=== PATIENT | female | born 1995 | race Two or more races ===

== ENCOUNTER 2024-03-03 16:08 | Inpatient (IN) ==
[2024-03-03 16:34] VITALS: BMI 41.8
[2024-03-03] MEDS ORDERED: REGLAN INJ 10 MG VIAL IVP PRN (16:45)
[2024-03-03] MEDS ORDERED: ZOFRAN INJ 4 MG VIAL IVP PRN (16:45)
[2024-03-03] MEDS ORDERED: PITOCIN IVP ONE (16:45)
[2024-03-03] MEDS: D5 1/2 NS 1,000 ML 1,000 ML IV ONE (17:00)
[2024-03-03 17:28] LABS: BASOPHILS # (AUTO) 0.1 X10^3/uL (0.0-0.1); BASOPHILS % (AUTO) 0.5 % (0.2-1.0); EOSINOPHILS # (AUTO) 0.1 x10^3/uL (0.0-0.2); EOSINOPHILS % (AUTO) 0.6 % (0.9-2.9); HEMATOCRIT 37.3 % (36.0-47.0); HEMOGLOBIN 13.1 g/dL (12.0-16.0); LYMPHOCYTES # (AUTO) 3.4 X10^3/uL (1.3-2.9); LYMPHOCYTES % (AUTO) 24.6 % (21.0-51.0); MEAN CORPUSCULAR HEMOGLOBIN 31.2 pg (27.0-34.0); MEAN CORPUSCULAR HGB CONC 35.1 g/dL (33.0-35.0); MEAN PLATELET VOLUME 11.5 fL (7.4-11.0); MONOCYTES # (AUTO) 0.7 x10^3/uL (0.3-0.8); NEUTROPHILS # (AUTO) 9.7 x10^3/uL (2.2-4.8); NEUTROPHILS % (AUTO) 69.3 % (42.0-75.0); PLATELET COUNT 201 X10^3/uL (150.0-450.0); RED BLOOD COUNT 4.19 X10^6/uL (3.5-5.4); RED CELL DISTRIBUTION WIDTH 13.7 % (11.6-16.5)
[2024-03-03 17:31] LABS: BLOOD UREA NITROGEN 7 mg/dL (7-18); CALCIUM 8.7 mg/dL (8.5-10.1); CARBON DIOXIDE 24.4 mmol/L (21-32); CHLORIDE 103 mmol/L (98-107); CREATININE 0.69 mg/dL (0.55-1.02); GLUCOSE 73 mg/dL (65-99); SODIUM 136 mmol/L (136-145); eGFR NON BLACK RACES > 60 (>60)
[2024-03-03] MEDS: OXYTOCIN 20 UNIT/1,000 ML-NS 20 UNIT/1,000 ML PLAST..BAG IV PRN (17:35)
[2024-03-03] MEDS: NUBAIN INJ 20 MG AMP IVP PRN (17:40)
--- NOTE | 2024-03-03 17:40 | DR.OB ---
OB QUICK NOTE Assessment/Plan (1) Active labor at term: Assessment/Plan: L&D 03/03/24 at 5:30pm S-No complaint except CTX. O-Afebrile,VSS OYX=387 with good LTV, +accel, no decel. CTX=q 1 1/2 min., mod. by palpation CVX=4-5cm/50%/-1/VTX AROM with light meconium. IUPC and FSE placed. A-IUP at 38 5/7 weeks in active labor P-Begin pitocin augmentation as needed. F/U labs Anticipate
[2024-03-03 17:56] LABS: BILIRUBIN,URINE NEGATIVE (NEGATIVE); BLOOD/HEMOGLOBIN,URINE 1+ (NEGATIVE); GLUCOSE, URINE NEGATIVE (NEGATIVE); KETONES,URINE NEGATIVE (NEGATIVE); LEUKOCYTE ESTERASE ,URINE NEGATIVE (NEGATIVE); NITRITES,URINE NEGATIVE (NEGATIVE); PROTEIN,URINE NEGATIVE (NEGATIVE); UROBILINOGEN,URINE NORMAL (NORMAL)
[2024-03-03 17:57] LABS: APPEARANCE,URINE CLEAR (CLEAR); COLOR,URINE PALE YELLOW (YELLOW)
[2024-03-03] MEDS: BETADINE SOLN ONE (18:00)
[2024-03-03 18:03] LABS: BACTERIA,URINE TRACE /HPF (NEGATIVE); RBC,URINE 0-2 /HPF (0-3); SQUAMOUS EPITHELIAL CELL,UR MODERATE /HPF (NEGATIVE)
[2024-03-03] MEDS: D5 1/2 NS 1,000 ML 1,000 ML IV SCH (18:12)
[2024-03-03] MEDS: NUBAIN INJ 10 MG AMP ONE (18:13)
[2024-03-03] MEDS: PITOCIN ONE (18:14)
--- NOTE | 2024-03-03 19:03 | DR.OB ---
OB QUICK NOTE Assessment/Plan (1) Active labor at term: Assessment/Plan: Delivery Note BULK STATION AGENT 03/03/24 at 6:47pm Patient complete and pushing. Head delivered over intact perineum. No nuchal cord. Nose and mouth bulb suctioned. Body delivered over intact perineum. Cord clamped x 2 and cut. Infant handed to attendant. Cord sent for gases. Placenta delivered spontaneously / intact / 3 vessel cord. No CVX / vaginal / perineal tears. Viable male infant delivered by , VTX/OA, wt=7'8" and 9/10, stable to NBN. [id number].
[2024-03-03] MEDS ORDERED: MOTRIN TAB 800 MG PO PRN (19:33)
[2024-03-03] MEDS ORDERED: AMBIEN PO PRN (19:33)
[2024-03-03] MEDS: OXYTOCIN 20 UNIT/1,000 ML-NS 20 UNIT/1,000 ML PLAST..BAG IV SCH (20:14)
[2024-03-04] MEDS: ADACEL or BOOSTRIX TDaP VACCINE IM ONE (01:05)
[2024-03-04 05:24] LABS: HEMATOCRIT 33.3 % (36.0-47.0); HEMOGLOBIN 11.5 g/dL (12.0-16.0)
[2024-03-04] MEDS: PRENATAL PLUS PO SCH (09:00)
[2024-03-05] MEDS: MOTRIN TAB 800 MG PO PRN (03:49)
--- NOTE | 2024-03-05 07:28 | W.DIS.FURT ---
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 Samaniego who presented on Sunday night and delivered by normal spontaneous vaginal delivery. Patient's hospital course has been essentially uncomplicated and on post day #2 discharge plans have been made to send the patient home. A prescription was sent to [facility] yesterday. 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 Follow-up is with Dr. Samaniego. Vital Signs: Vital Signs (72 hours) 03/03/24 16:30 03/03/24 17:19 03/03/24 17:29 Temperature 98.2 F Pulse Rate 87 88 78 Pulse Rate [Brachial] Respiratory Rate 22 Blood Pressure 133/65 134/93 131/74 Blood Pressure [Left Arm] O2 Sat by Pulse Oximetry 100 98 Oxygen Delivery Method Room Air 03/03/24 17:34 03/03/24 17:36 03/03/24 17:39 Temperature Pulse Rate 87 76 76 Pulse Rate [Brachial] Respiratory Rate Blood Pressure 120/75 Blood Pressure [Left Arm] O2 Sat by Pulse Oximetry 99 99 Oxygen Delivery Method 03/03/24 17:44 03/03/24 17:49 03/03/24 17:54 Temperature Pulse Rate 76 79 81 Pulse Rate [Brachial] Respiratory Rate Blood Pressure 124/84 Blood Pressure [Left Arm] O2 Sat by Pulse Oximetry 99 99 99 Oxygen Delivery Method 03/03/24 17:59 03/03/24 18:04 03/03/24 18:06 Temperature Pulse Rate 78 84 83 Pulse Rate [Brachial] Respiratory Rate Blood Pressure 123/86 Blood Pressure [Left Arm] O2 Sat by Pulse Oximetry 99 99 Oxygen Delivery Method 03/03/24 18:09 03/03/24 18:14 03/03/24 18:19 Temperature Pulse Rate 83 84 81 Pulse Rate [Brachial] Respiratory Rate Blood Pressure Blood Pressure [Left Arm] O2 Sat by Pulse Oximetry 99 97 100 Oxygen Delivery Method 03/03/24 18:20 03/03/24 18:24 03/03/24 18:00 Temperature 98.2 F Pulse Rate 76 77 Pulse Rate [Brachial] Respiratory Rate Blood Pressure 133/87 Blood Pressure [Left Arm] O2 Sat by Pulse Oximetry 99 Oxygen Delivery Method 03/03/24 18:29 03/03/24 18:34 03/03/24 18:36 Temperature Pulse Rate 82 82 91 H Pulse Rate [Brachial] Respiratory Rate Blood Pressure 140/91 Blood Pressure [Left Arm] O2 Sat by Pulse Oximetry 100 99 Oxygen Delivery Method 03/03/24 18:39 03/03/24 18:45 03/03/24 18:50 Temperature Pulse Rate 100 H 61 83 Pulse Rate [Brachial] Respiratory Rate Blood Pressure 154/69 Blood Pressure [Left Arm] O2 Sat by Pulse Oximetry 99 83 L Oxygen Delivery Method 03/03/24 18:53 03/03/24 18:58 03/03/24 19:03 Temperature Pulse Rate 114 H 89 79 Pulse Rate [Brachial] Respiratory Rate Blood Pressure Blood Pressure [Left Arm] O2 Sat by Pulse Oximetry 98 99 99 Oxygen Delivery Method 03/03/24 19:20 03/03/24 19:32 03/03/24 19:34 Temperature Pulse Rate 88 126 H 78 Pulse Rate [Brachial] Respiratory Rate Blood Pressure 119/84 112/64 Blood Pressure [Left Arm] O2 Sat by Pulse Oximetry 83 L Oxygen Delivery Method 03/03/24 19:37 03/03/24 19:42 03/03/24 19:47 Temperature Pulse Rate 137 H 79 72 Pulse Rate [Brachial] Respiratory Rate Blood Pressure Blood Pressure [Left Arm] O2 Sat by Pulse Oximetry 84 L 98 98 Oxygen Delivery Method 03/03/24 19:50 03/03/24 19:52 03/03/24 19:57 Temperature Pulse Rate 80 84 81 Pulse Rate [Brachial] Respiratory Rate Blood Pressure 118/62 Blood Pressure [Left Arm] O2 Sat by Pulse Oximetry 99 99 Oxygen Delivery Method 03/03/24 20:03 03/03/24 20:04 03/03/24 20:07 Temperature Pulse Rate 72 79 76 Pulse Rate [Brachial] Respiratory Rate Blood Pressure 115/74 Blood Pressure [Left Arm] O2 Sat by Pulse Oximetry 98 85 L Oxygen Delivery Method 03/03/24 20:08 03/03/24 18:05 03/03/24 19:00 Temperature 98.2 F Pulse Rate 74 74 Pulse Rate [Brachial] Respiratory Rate 19 Blood Pressure 134/93 Blood Pressure [Left Arm] O2 Sat by Pulse Oximetry 99 Oxygen Delivery Method Room Air 03/03/24 20:15 03/03/24 19:15 03/03/24 19:30 Temperature 98.1 F Pulse Rate 76 74 76 Pulse Rate [Brachial] Respiratory Rate 18 19 19 Blood Pressure 115/74 131/74 120/75 Blood Pressure [Left Arm] O2 Sat by Pulse Oximetry Oxygen Delivery Method 03/03/24 19:45 03/03/24 19:56 03/03/24 20:00 Temperature Pulse Rate 79 83 76 Pulse Rate [Brachial] Respiratory Rate 19 19 18 Blood Pressure 124/84 123/96 133/87 Blood Pressure [Left Arm] O2 Sat by Pulse Oximetry Oxygen Delivery Method 03/03/24 20:30 03/03/24 20:20 03/03/24 20:35 Temperature 98.4 F 98.5 F Pulse Rate 73 72 Pulse Rate [Brachial] Respiratory Rate 18 18 Blood Pressure 122/73 110/69 Blood Pressure [Left Arm] O2 Sat by Pulse Oximetry Oxygen Delivery Method Room Air 03/03/24 20:50 03/03/24 21:05 03/03/24 21:20 Temperature 98.1 F 98.0 F 98.9 F Pulse Rate 80 83 86 Pulse Rate [Brachial] Respiratory Rate 18 17 19 Blood Pressure 136/76 114/66 113/65 Blood Pressure [Left Arm] O2 Sat by Pulse Oximetry Oxygen Delivery Method 03/03/24 22:20 03/03/24 23:20 03/04/24 00:20 Temperature 98.1 F 98.5 F 98.5 F Pulse Rate 76 81 73 Pulse Rate [Brachial] Respiratory Rate 18 16 18 Blood Pressure 116/73 118/73 119/71 Blood Pressure [Left Arm] O2 Sat by Pulse Oximetry Oxygen Delivery Method 03/04/24 00:00 03/04/24 01:20 03/04/24 04:00 Temperature 98.5 F 98.1 F 98.4 F Pulse Rate 70 Pulse Rate [Brachial] 73 75 Respiratory Rate 18 18 16 Blood Pressure 115/76 Blood Pressure [Left Arm] 119/71 104/64 O2 Sat by Pulse Oximetry 99 98 Oxygen Delivery Method Room Air Room Air 03/04/24 08:00 03/04/24 12:00 03/04/24 16:00 Temperature 98.1 F 98.5 F 98.0 F Pulse Rate Pulse Rate [Brachial] 81 72 87 Respiratory Rate 18 19 18 Blood Pressure Blood Pressure [Left Arm] 109/65 128/81 105/56 O2 Sat by Pulse Oximetry 98 99 98 Oxygen Delivery Method Room Air Room Air Room Air 03/04/24 20:00 03/05/24 00:00 03/05/24 03:49 Temperature 98.7 F 98.9 F Pulse Rate Pulse Rate [Brachial] 87 75 Respiratory Rate 20 18 17 Blood Pressure Blood Pressure [Left Arm] 114/59 110/67 O2 Sat by Pulse Oximetry 97 96 Oxygen Delivery Method Room Air Room Air 03/05/24 04:00 03/05/24 04:49 Temperature 98.1 F Pulse Rate Pulse Rate [Brachial] 74 Respiratory Rate 20 18 Blood Pressure Blood Pressure [Left Arm] 105/53 O2 Sat by Pulse Oximetry 99 Oxygen Delivery Method Room Air Labs: Laboratory Last Values WBC 14.0 X10^3/uL (3.6-10.0) H 03/03/24 17:00 RBC 4.19 X10^6/uL (3.5-5.4) 03/03/24 17:00 Hgb 11.5 g/dL (12.0-16.0) L 03/04/24 04:00 Hct 33.3 % (36.0-47.0) L 03/04/24 04:00 MCV 89.0 fL (80.0-100.0) 03/03/24 17:00 MCH 31.2 pg (27.0-34.0) 03/03/24 17:00 MCHC 35.1 g/dL (33.0-35.0) H 03/03/24 17:00 RDW 13.7 % (11.6-16.5) 03/03/24 17:00 Plt Count 201 X10^3/uL (150.0-450.0) 03/03/24 17:00 MPV 11.5 fL (7.4-11.0) H 03/03/24 17:00 Neut % (Auto) 69.3 % (42.0-75.0) 03/03/24 17:00 Lymph % (Auto) 24.6 % (21.0-51.0) 03/03/24 17:00 [place] % (Auto) 5.0 % (0.0-13.0) 03/03/24 17:00 Eos % (Auto) 0.6 % (0.9-2.9) L 03/03/24 17:00 Baso % (Auto) 0.5 % (0.2-1.0) 03/03/24 17:00 Neut # (Auto) 9.7 x10^3/uL (2.2-4.8) H 03/03/24 17:00 Lymph # (Auto) 3.4 X10^3/uL (1.3-2.9) H 03/03/24 17:00 [place] # (Auto) 0.7 x10^3/uL (0.3-0.8) 03/03/24 17:00 Eos # (Auto) 0.1 x10^3/uL (0.0-0.2) 03/03/24 17:00 Baso # (Auto) 0.1 X10^3/uL (0.0-0.1) 03/03/24 17:00 Absolute Nucleated RBC 0.0 /100WBC 03/03/24 17:00 Sodium 136 mmol/L (136-145) 03/03/24 17:00 Corrected Sodium TNP 03/03/24 17:00 Potassium 4.0 mmol/L (3.5-5.1) 03/03/24 17:00 Chloride 103 mmol/L (98-107) 03/03/24 17:00 Carbon Dioxide 24.4 mmol/L (21-32) 03/03/24 17:00 BUN 7 mg/dL (7-18) 03/03/24 17:00 Creatinine 0.69 mg/dL (0.55-1.02) 03/03/24 17:00 Est GFR (MDRD) Af Amer > 60 (>60) 03/03/24 17:00 Est GFR (MDRD) Non-Af > 60 (>60) 03/03/24 17:00 Glucose 73 mg/dL (65-99) 03/03/24 17:00 Calcium 8.7 mg/dL (8.5-10.1) 03/03/24 17:00 Specimen Type Clean catch urine 03/03/24 17:00 Urine Color Pale yellow (YELLOW) 03/03/24 17:00 Urine Appearance Clear (CLEAR) 03/03/24 17:00 Urine pH 7.0 (5.0 - 8.0) 03/03/24 17:00 Ur Specific [place] 1.010 (1.000-1.030) 03/03/24 17:00 Urine Protein Negative (NEGATIVE) 03/03/24 17:00 Urine Glucose (UA) Negative (NEGATIVE) 03/03/24 17:00 Urine Ketones Negative (NEGATIVE) 03/03/24 17:00 Urine Blood 1+ (NEGATIVE) 03/03/24 17:00 Urine Nitrite Negative (NEGATIVE) 03/03/24 17:00 Urine Bilirubin Negative (NEGATIVE) 03/03/24 17:00 Urine Urobilinogen Normal (NORMAL) 03/03/24 17:00 Ur Leukocyte Esterase Negative (NEGATIVE) 03/03/24 17:00 Urine RBC 0-2 /HPF (0-3) 03/03/24 17:00 Urine WBC 0-2 /HPF (0-5) 03/03/24 17:00 Ur Squamous Epith Cells Moderate /HPF (NEGATIVE) 03/03/24 17:00 Urine Bacteria Trace /HPF (NEGATIVE) 03/03/24 17:00 Ur Culture Indicated? No/not indicated 03/03/24 17:00 RPR Nonreactive (NONREACTIVE) 03/03/24 17:00 HIV 1&2 Antibody Non reactive (NONREACTIVE) 03/03/24 17:00 HIV P24 Antigen Non reactive (NONREACTIVE) 03/03/24 17:00 Blood Type O POSITIVE 03/03/24 17:08 Antibody Screen Negative 03/03/24 17:08 Reason For Visit: ONSET OF LABOR Discharge Diagnosis All Active Problems (Updated 03/03/24 @ 17:37 by RED DIEGO) Active labor at term (Acute) Plan of Treatment: Continue with present treatment and follow up plan. Pt is to keep follow up appointment as instructed and take medications as ordered. Discharge Medications Discharge Medications: No Known Allergies Allergy (Verified 03/03/24 16:34) New Prescriptions ibuprofen 800 mg tablet 800 mg PO Q8H PRN 30 days #30 tabs 03/04/24 [Rx] Discharge Disposition Assessment: day #2 status post normal spontaneous vaginal delivery doing well and ready for discharge. Discharge Plan Discharge Plan Hospital Course: 28-year-old obstetric patient of Dr. Samaniego who presented on Sunday night and delivered by normal spontaneous vaginal delivery. Patient's hospital course has been essentially uncomplicated and on post day #2 discharge plans have been made to send the patient home. A prescription was sent to [facility] yesterday. 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 Follow-up is with Dr. Samaniego. Patient Disposition: 01 HOME, SELF-CARE Condition: Stable Health Concerns: Post Hospitalization: new medications and changes needed to prevent readmission or further decline. Pt educated and given instructions on all concerns. Care Plan Goals: Problem: High Risk for Bleeding Goal: Reduced Risk of Bleeding Instructions: Follow provided instructions. Follow up with primary physician as directed. Contact primary care physician or report to the closest Emergency Room if condition worsens. Plan of Treatment: Continue with present treatment and follow up plan. Pt is to keep follow up appointment as instructed and take medications as ordered. Assessment: day #2 status post normal spontaneous vaginal delivery doing well and ready for discharge. Prescriptions: New ibuprofen 800 mg Tablet 800 mg PO Q8H PRN30 Days Qty: 30 0RF Follow ups/Referrals Follow ups/Referrals: RED DIEGO [Primary Care Provider] - 6 WEEKS Instructions Instructions: Hemorrhage, Baby Blues, Care After Vaginal Delivery Stand Alone Forms: Find Help Web Site, Post Hospital Follow Up Care
--- NOTE | 2024-03-05 07:30 | NOTE.PROOB ---
progress Note OB- Date Date of Exam: 03/05/24 Subjective Data Subjective: No complaints, decreased lochia. Tolerating diet. No N/V. Ambulating well. No dysuria. Objective Data 03/04/24 04:00 03/03/24 17:00 Objective Data: CV= RRR no MRG Lungs=CTA Bilaterally Abd=(+) BS, soft, NTND, Fundus firm/NT/below umbilicus. Ext=no edema, NT, no cords Assessment Assessment: Normal spontaneous vaginal delivery day #2, to be disc harged home. Plan (1) Active labor at term: Plan: Patient to be discharged home today, follow-up with Dr. Samaniego.
[2024-03-05] MEDS: MILK OF MAGNESIA PO PRN (09:40)
[2024-03-05] MEDS: DERMOPLAST PAIN RELIEF SPRAY TOP PRN (09:41)
[2024-03-05 12:16] VITALS: BP 121/69; PULSE 90; RESP 20; TEMP 98.4; O2SAT 98
== END 2024-03-05 12:45 | disposition home or self-care (01) | DRG 807 ==
LOC: ER 16:08 → LD 16:46 → MED/SURG 20:17
PROVIDERS: ADMIT Specialist; ATTEND Specialist
DX: O80 Encounter for full-term uncomplicated delivery; Z37.0 Single live birth; Z3A.38 38 weeks gestation of pregnancy